=== PATIENT | female | born 1990 | race Two or more races ===

== ENCOUNTER 2017-07-05 21:58 | Emergency (ER) | payer OTHER ==
[~2017-07-05] VITALS: Ht 162.6 cm; Wt 85.6 kg
[2017-07-06] MEDS: ONDANSETRON ODT 4 MG PO ONE
[2017-07-06] MEDS ORDERED: ONDANSETRON ODT 4 MG ONE (00:20)
[2017-07-06 00:26] LABS: HEMATOCRIT 40.2 % (34.6-47.8); HEMOGLOBIN 13.3 g/dL (11.7-16.4); WHITE BLOOD COUNT 7.4 x10^3/uL (3.4-10)
[2017-07-06 00:38] LABS: BLOOD UREA NITROGEN 19 mg/dL (7-18)
[2017-07-06 01:39] VITALS: BP 123/84
== END 2017-07-06 02:16 | disposition home or self-care (01) ==
LOC: ED 23:59
DX: R11.0 Nausea (principal); R42 Dizziness and giddiness; H53.8 Other visual disturbances
CPT/HCPCS: 36415; 80048; 81003; 82040; 84703; 85025; 93005; 99285; Q0162